=== PATIENT | female | born 1970 | race Two or more races ===

== ENCOUNTER 2024-01-16 12:38 | Emergency (ER) | payer OTHER ==
[~2024-01-16] VITALS: Ht 157.5 cm; Wt 70.0 kg
[2024-01-16 13:19] VITALS: BP 148/98; PULSE 85; RESP 18; TEMP 98.7; O2SAT 100
[2024-01-16] MEDS: ACETAMINOPHEN 500 MG TAB PO ONE (14:56)
== END 2024-01-16 15:00 | disposition home or self-care (01) ==
LOC: ER 12:38
DX: S01.01XA Laceration without foreign body of scalp, initial encounter (principal); E78.5 Hyperlipidemia, unspecified; E23.6 Other disorders of pituitary gland; I10 Essential (primary) hypertension; W01.0XXA Fall on same level from slipping, tripping and stumbling without subsequent striking against object, initial encounter; Y93.89 Activity, other specified; Y92.89 Other specified places as the place of occurrence of the external cause; Y99.8 Other external cause status
CPT/HCPCS: 12001; 70450